=== PATIENT | female | born 1965 | race Two or more races ===

== ENCOUNTER 2018-09-27 16:00 | Emergency (ER) | payer MEDICAID ==
[~2018-09-27] VITALS: Ht 162.6 cm; Wt 63.6 kg
[2018-09-27 16:03] VITALS: BP 116/80
[2018-09-27] MEDS ORDERED: AMOX-422 PO (16:15)
== END 2018-09-27 16:33 ==
LOC: EEVIPCON 16:03 → ER 16:03
DX: S20.412A Abrasion of left back wall of thorax, initial encounter (principal); Z79.2 Long term (current) use of antibiotics; W54.0XXA Bitten by dog, initial encounter; Y93.89 Activity, other specified; Y92.89 Other specified places as the place of occurrence of the external cause; Y99.8 Other external cause status
CPT/HCPCS: 99283

== ENCOUNTER 2019-11-29 10:48 | Day surgery (SDC) | payer MEDICAID ==
[~2019-11-29] VITALS: Ht 162.6 cm; Wt 73.1 kg
[2019-11-29] MEDS ORDERED: normal saline 1000ml 1,000 ML IV PRN (11:15)
[2019-11-29 11:30] VITALS: BP 106/64
[2019-11-29] MEDS ORDERED: FLUO20CA39 PO (12:15)
[2019-11-29] MEDS ORDERED: AMA100C PO (12:16)
[2019-11-29] MEDS ORDERED: HALO10TA13 PO (12:17)
[2019-11-29] MEDS ORDERED: OLAN15TA17 PO (12:20)
[2019-11-29] MEDS ORDERED: LIDOcaine 1%/PF 5ML 10 MG/ML VIAL ONE (12:22)
[2019-11-29] MEDS ORDERED: heparin sodium, porcine/PF 100unit/ml 5ML syringe ONE (12:22)
[2019-11-29] MEDS ORDERED: midazolam 2 mg/2 ml injection ONE (12:23)
[2019-11-29] MEDS ORDERED: fentaNYL/PF 50MCG/1 ML 2ML syringe ONE (12:23)
[2019-11-29 13:20] VITALS: BP 131/71
[2019-11-29 13:30] VITALS: BP 124/64
[2019-11-29 13:45] VITALS: BP 112/61
[2019-11-29 14:00] VITALS: BP 111/70
== END 2019-11-29 14:30 | disposition home or self-care (01) ==
LOC: SSTAY O 10:48
PROVIDERS: ATTEND Radiology Vascular & Interventional Radiology
DX: C50.512 Malignant neoplasm of lower-outer quadrant of left female breast (principal); F20.9 Schizophrenia, unspecified; D72.819 Decreased white blood cell count, unspecified; D64.9 Anemia, unspecified; Z79.899 Other long term (current) drug therapy; F17.210 Nicotine dependence, cigarettes, uncomplicated; Z20.828 Contact with and (suspected) exposure to other viral communicable diseases; Z80.3 Family history of malignant neoplasm of breast
CPT/HCPCS: 36415; 36561; 76937; 77001; 87635; 99152; 99153; C1769; C1788; C1894; J1642; J2250; J3010